=== PATIENT | female | born 1985 | race Caucasian/White ===

== ENCOUNTER 2016-12-02 11:12 | Emergency (ER) | payer MEDICAID ==
[2016-12-02 11:23] VITALS: BMI 31.8
[2016-12-02 11:26] VITALS: TEMP 98.4; O2SAT 98
[2016-12-02 12:19] LABS: RBC URINE 4 /hpf (0-3); URINE BACTERIA RARE (<OCC); URINE BILIRUBIN NEGATIVE (NEGATIVE); URINE BLOOD NEGATIVE (NEGATIVE); URINE COLOR Yellow (YELLOW); URINE GLUCOSE (UA) NORMAL (Normal); URINE KETONE NEGATIVE (NEGATIVE); URINE PROTEIN NEGATIVE (NEGATIVE); URINE UROBILINOGEN NORMAL mg/dL (0.2-1.0); WBC URINE 1 /hpf (0-5)
[2016-12-02 12:23] LABS: URINE LEUKOCYTE ESTERASE NEGATIVE Leu/uL (Negative)
[2016-12-02] MEDS ORDERED: cefTRIAXone (Rocephin) 250 mg Inj IM STA (12:49)
--- NOTE | 2016-12-02 12:49 | C.PDOC ---
History Of Present Illness Patient is a 30 y/o F presenting complaining of vaginal discharge and suprapubic pain. Denies fever. Reports that she is sexually active. Denies flank pain. Denies vomiting. Time Seen by Provider: 12/02/16 11:34 Chief Complaint (Nursing): Back Pain Past Medical History Vital Signs: Last Vital Signs Temp 98.4 F 12/02/16 11:23 Pulse 85 12/02/16 14:44 Resp 16 12/02/16 14:44 BP 121/75 12/02/16 14:44 Pulse Ox 98 12/02/16 14:44 - Medical History PMH: Back Problems, Depression - [facility] Procedures CLOSURE SKIN & SUBCUTANEOUS NEC (10/29/12) TETANUS TOXOID ADMINIST (10/29/12) Family History: States: Unknown Family Hx - Social History Hx Tobacco Use: Yes Hx Alcohol Use: No Hx Substance Use: No - Immunization History Hx Tetanus Toxoid Vaccination: No Hx Influenza Vaccination: No Hx Pneumococcal Vaccination: No Review Of Systems Constitutional: Negative for: Fever, Chills Cardiovascular: Negative for: Chest Pain, Palpitations Respiratory: Negative for: Cough, Shortness of Breath, SOB with Excertion, Wheezing Gastrointestinal: Negative for: Nausea, Vomiting, Abdominal Pain, Diarrhea Genitourinary: Positive for: Vaginal Discharge, Pelvic Pain. Negative for: Dysuria, Frequency Neurological: Negative for: Weakness, Numbness Physical Exam - Physical Exam Appears: Well, Non-toxic, No Acute Distress Skin: Normal Color, Warm, Dry Head: Atraumatic, Normacephalic Eye(s): bilateral: Normal Inspection, PERRL, EOMI Neck: Supple Chest: Symmetrical Cardiovascular: Rhythm Regular Respiratory: Normal Breath Sounds, No Rales, No Rhonchi, No Wheezing Gastrointestinal/Abdominal: Soft, Tenderness (suprapubic) Back: Normal Inspection, No CVA Tenderness Pelvic: Normal External Exam, Vaginal Discharge, Cervical Motion Tenderness ( chaperoned by edward Mooney) Extremity: Normal ROM Neurological/Psych: Oriented x3 Gait: Steady ED Course And Treatment O2 Sat by Pulse Oximetry: 98 Medical Decision Making Medical Decision Making: UA and test negative. Will treat with rocephin and azithromycin for cervicitis. Will get u/s to r/o TOA 2:34 Pelvic u/s negative for torsion or TOA. UTERUS: Measures 12.9 x 4.0 x 5.7 cm. Uterus is enlarged appearing anteverted but slightly retroflexed. No fibroid or other mass lesion seen. ENDOMETRIUM: Measures 6.3 mm in diameter. No discrete interviewed endometrial lesion is identified transabdominally or transvaginally. . CERVIX: Small nabothian cysts is seen in the cervix with remainder unremarkable RIGHT OVARY: Measures 4.3 x 1.8 x 3.1 cm. No solid mass. Normal flow. 1.3 cm collapsing follicles appreciated superiorly. Trace fluid is seen the rhinitis compartment as well which may be due to ruptured cyst or follicle. This is a minimal volume. LEFT OVARY: Measures 2.7 x 1.6 x 2.5 cm. No solid mass. Normal flow. FREE FLUID: No significant free fluid noted. OTHER FINDINGS: None. IMPRESSION: Likely collapsing follicle right ovary with trace fluid in the right as part possibly from ruptured follicle. Unremarkable left ovary and uterus. 2:55PM On reevaluation, patient has soft NT/ND abdomen and feels better. Disposition - Disposition Disposition: HOME/ ROUTINE Disposition Time: 14:34 Condition: FAIR Additional Instructions: Follow-up with payroll supervisor for further evaluation of ovarian cysts. Return to ED if condition worsens. Follow-up with PMD within 2 days. Instructions: Cervicitis (ED), Ovarian Cyst (ED) Forms: [facility] (Congolese), School Excuse, Work Excuse - Clinical Impression Clinical Impression: Cervicitis, Ovarian cyst
[2016-12-02 14:45] VITALS: BP 121/75; PULSE 85; RESP 16
--- NOTE | 2016-12-02 14:53 | US ---
HISTORY: vaginal discharge, pain COMPARISON: None available. TECHNIQUE: Transabdominal and transvaginal pelvic ultrasonography were performed for evaluation of vaginal discharge and pelvic pain and comparison is made with prior transvaginal and pelvis ultrasound examination is performed 12/19/2013. FINDINGS: UTERUS: Measures 12.9 x 4.0 x 5.7 cm. Uterus is enlarged appearing anteverted but slightly retroflexed. No fibroid or other mass lesion seen. ENDOMETRIUM: Measures 6.3 mm in diameter. No discrete interviewed endometrial lesion is identified transabdominally or transvaginally. . CERVIX: Small nabothian cysts is seen in the cervix with remainder unremarkable RIGHT OVARY: Measures 4.3 x 1.8 x 3.1 cm. No solid mass. Normal flow. 1.3 cm collapsing follicles appreciated superiorly. Trace fluid is seen the rhinitis compartment as well which may be due to ruptured cyst or follicle. This is a minimal volume. LEFT OVARY: Measures 2.7 x 1.6 x 2.5 cm. No solid mass. Normal flow. FREE FLUID: No significant free fluid noted. OTHER FINDINGS: None. IMPRESSION: Likely collapsing follicle right ovary with trace fluid in the right as part possibly from ruptured follicle. Unremarkable left ovary and uterus.
== END 2016-12-02 14:45 | disposition home or self-care (01) ==
LOC: C.ER 11:12
DX: N72 Inflammatory disease of cervix uteri (principal); N83.209 Unspecified ovarian cyst, unspecified side
CPT/HCPCS: 76830; 76856; 81001; 87491; 87591; 96372; 99283; J0696

== ENCOUNTER 2016-12-17 17:32 | Emergency (ER) | payer MEDICAID ==
[2016-12-17 17:32] VITALS: BMI 31.8
[2016-12-17] MEDS ORDERED: Sodium Chloride 0.9% 1,000 ML IV ONE (19:13)
--- NOTE | 2016-12-17 19:13 | C.PDOC ---
History Of Present Illness Patient who is , P:1, presents to the ER with a complaint of suprapubic discomfort and passing clots that began today. Denies fever or chills. Time Seen by Provider: 12/17/16 19:13 Chief Complaint (Nursing): Female Genitourinary History Per: Patient History/Exam Limitations: no limitations Onset/Duration Of Symptoms: Hrs Current Symptoms Are (Timing): Still Present Severity: Mild Pain Scale Rating Of: 4 Quality Of Discomfort: Unable To Describe Associated Symptoms: Other (Passing clots). denies: Fever, Chills Alleviating Factors: None Recent travel outside of the [place]: No Abnormal Vaginal Bleeding: Yes : 2 Para: 1 Past Medical History Reviewed: Historical Data, Nursing Documentation, Vital Signs Vital Signs: Last Vital Signs Temp 98.4 F 12/17/16 17:51 Pulse 70 12/17/16 17:51 Resp 16 12/17/16 17:51 BP 124/77 12/17/16 17:51 Pulse Ox 100 12/17/16 19:46 - Medical History PMH: Back Problems, Depression Surgical History: No Surg Hx - [facility] Procedures CLOSURE SKIN & SUBCUTANEOUS NEC (10/29/12) TETANUS TOXOID ADMINIST (10/29/12) Family History: States: No Known Family Hx - Social History Hx Tobacco Use: Yes Hx Alcohol Use: Yes Hx Substance Use: No - Immunization History Hx Tetanus Toxoid Vaccination: No Hx Influenza Vaccination: No Hx Pneumococcal Vaccination: No Review Of Systems Constitutional: Negative for: Fever, Chills Gastrointestinal: Positive for: Abdominal Pain Genitourinary: Positive for: Other (Passing clots) Physical Exam - Physical Exam Appears: Non-toxic Skin: Warm, Dry Head: Normacephalic Oral Mucosa: Moist Neck: Supple Chest: Symmetrical, No Tenderness Cardiovascular: Rhythm Regular Respiratory: No Rales, No Rhonchi, No Wheezing Gastrointestinal/Abdominal: Soft, Tenderness (Mild Suprapubic), No Guarding, No Rebound Back: No CVA Tenderness Extremity: Normal ROM Extremity: Bilateral: Atraumatic Neurological/Psych: Oriented x3, Normal Speech, Normal Cognition Gait: Steady ED Course And Treatment - Laboratory Results Result Diagrams: 12/17/16 19:33 12/17/16 19:33 O2 Sat by Pulse Oximetry: 100 (Room air) Pulse Ox Interpretation: Normal Progress Note: Blood work, urinalysis, and pelvis US ordered. IV fluids administered. Medical Decision Making Medical Decision Making: Upon provider reevaluation patient is feeling better, is medically stable, and requires no further treatment in the ED at this time. Patient will be discharged home with Rx for macrobid . Counseling was provided and all questions were answered regarding diagnosis and need for follow up with the referred clinic. There is agreement to discharge plan. Return if symptoms persist or worsen. Disposition Counseled Patient/Family Regarding: Studies Performed, Diagnosis, Need For Followup, Rx Given - Disposition Referrals: Anatoly Valencia MD [Medical Doctor] - Disposition: HOME/ ROUTINE Disposition Time: 19:13 Condition: FAIR Additional Instructions: Please follow up with you woodwind reeds cutter and have a repeat HCG in 5-7 days Prescriptions: Nitrofurantoin Macrocrystals [Macrobid] 1 cap PO BID #14 cap Instructions: Threatened Miscarriage (ED), Urinary Tract Infection in (ED) Forms: [facility] (Angolan) - Clinical Impression Clinical Impression: Threatened , UTI (urinary tract infection) during - Scribe Statement The provider has reviewed the documentation as recorded by the Scribe Taiwo Dailey All medical record entries made by the Scribe were at my direction and personally dictated by me. I have reviewed the chart and agree that the record accurately reflects my personal performance of the history, physical exam, medical decision making, and the department course for this patient. I have also personally directed, reviewed, and agree with the discharge instructions and disposition.
[2016-12-17 19:45] LABS: CHLORIDE 100 mmol/L (98-107); SODIUM 139 mmol/L (132-148)
[2016-12-17 19:46] LABS: POTASSIUM 3.8 mmol/L (3.6-5.2)
[2016-12-17 19:47] LABS: RBC URINE 1312 /hpf (0-3); URINE BILIRUBIN NEGATIVE (NEGATIVE); URINE BLOOD 3+ (NEGATIVE); URINE COLOR Yellow (YELLOW); URINE GLUCOSE (UA) NORMAL (Normal); URINE KETONE NEGATIVE (NEGATIVE); URINE LEUKOCYTE ESTERASE TRACE Leu/uL (Negative); URINE PROTEIN 1+ mg/dL (NEGATIVE); URINE UROBILINOGEN NORMAL mg/dL (0.2-1.0); WBC URINE 44 /hpf (0-5)
[2016-12-17 19:48] LABS: ALB/GLOB RATIO 1.6 (1.0-2.1); ALKALINE PHOSPHATASE 65 U/L (38-126); ALT/SGPT 31 U/L (9-52); AST/SGOT 18 U/L (14-36); BILIRUBIN,TOTAL 0.4 mg/dL (0.2-1.3); BLOOD UREA NITROGEN 10 mg/dL (7-17); CARBON DIOXIDE 21 mmol/L (22-30); GFR AFRICAN-AMERICAN > 60; GLUCOSE,RANDOM 68 mg/dL (65-105); TOTAL PROTEIN 7.3 g/dL (6.3-8.3)
[2016-12-17 19:49] LABS: CALCIUM 8.2 mg/dl (8.6-10.4)
[2016-12-17 19:50] LABS: BASO # 0.1 K/uL (0.0-0.2); BASO % 0.6 % (0.0-2.0); EOS # 0.1 K/uL (0.0-0.7); EOS % 1.1 % (0.0-4.0); HEMATOCRIT 39.2 % (34.0-47.0); LYMPH # 3.4 K/uL (1.0-4.3); LYMPH % 28.1 % (20.0-40.0); MEAN CELL VOLUME 83.4 fL (81.0-99.0); MEAN CORPUSCULAR HEMOGLOBIN 27.6 pg (27.0-31.0); MEAN CORPUSCULAR HGB CONC 33.1 g/dL (33.0-37.0); MEAN PLATELET VOLUME 10.2 fL (7.2-11.7); MONO # 0.6 K/uL (0.0-0.8); MONO % 5.2 % (0.0-10.0); NRBC % 0.1 % (0.0-2.0); WHITE BLOOD COUNT 12.2 K/uL (4.8-10.8)
[2016-12-17] MEDS ORDERED: Sodium Chloride 0.9% 1,000 ML ONE (19:56)
--- NOTE | 2016-12-17 21:07 | US ---
EXAM: US Pelvis Complete, Transabdominal US Pelvis, Transvaginal CLINICAL HISTORY: 31 years old, female; Signs and symptoms; Other: Vag bleed; Prior surgery; Surgery date: 6+ months; Surgery type: TECHNIQUE: Real-time transabdominal and transvaginal pelvic ultrasound (complete) with image documentation. Transvaginal imaging was used for better evaluation of the endometrium and adnexa. COMPARISON: No relevant prior studies available. FINDINGS: Uterus/cervix: The uterus measures 11.6 x 5.2 x 7 cm. The endometrial stripe and ovaries are not well seen on the trans-abdominal portion of the study Free fluid: No free fluid. Bladder: Unremarkable as visualized. Wall is normal thickness for degree of distention. IMPRESSION: The endometrial stripe and ovaries are not well seen.. EXAM: US Pelvis, Transvaginal EXAM DATE/TIME: Exam ordered 12/17/2016 7:13 PM CLINICAL HISTORY: 31 years old, female; Signs and symptoms; Other: Vag bleed; Prior surgery; Surgery date: 6+ months; Surgery type: TECHNIQUE: Real-time transvaginal pelvic ultrasound (complete) with image documentation. Transvaginal imaging was used for better evaluation of the endometrium and adnexa. COMPARISON: PELVIS/TRANSVAG US 12/02/2016 1:33:18 PM FINDINGS: Uterus/cervix: There is a nabothian cyst within the cervix. The endometrial stripe measures 7 mm. there is no intrauterine . Right ovary: The right ovary measures a 2.7 x 2.3 x 2.3 cm. Complex cyst is noted in the right ovary measure 1.5 x 1.1 x 1.3 cm. . The cyst appears collapsed and there is an echogenic rim of tissue surrounding it. Blood flow is seen within the right ovary on color Doppler examination. There is no significant vascularity noted surrounding the cyst. Left ovary: The left ovary measures 2.7 x 1.6 x 1.9 cm. Blood flow is seen in the left ovary on pulsed Doppler examination. . Free fluid: A small amount of free fluid is seen adjacent to the right ovary. Bladder: Empty bladder which cannot be evaluated with this probe. IMPRESSION: Complex cyst noted within the right ovary. This could be a corpus luteum cyst. An empty uterus and the presence of a positive beta hCG raises the possibility of an ectopic . Serial beta hCG measurement and possible followup ultrasound should be considered.
[2016-12-17 21:44] VITALS: BP 128/82; PULSE 87; RESP 20; TEMP 98.1; O2SAT 98
== END 2016-12-17 21:44 | disposition home or self-care (01) ==
LOC: C.ER 17:32
DX: O20.0 Threatened abortion (principal); O23.40 Unspecified infection of urinary tract in pregnancy, unspecified trimester
CPT/HCPCS: 76830; 76856; 80053; 81001; 84702; 85025; 86850; 86900; 96360; 99285; J7040

== ENCOUNTER 2018-08-10 13:48 | Outpatient (CLI) | payer MEDICAID | END 2018-08-10 13:49 | disposition home or self-care (01) | LOC: C.RADIC 13:48 ==